=== PATIENT | female | born 1965 ===

== ENCOUNTER 2023-04-20 07:37 | Outpatient (CLI) | payer OTHER | END 2023-04-20 07:41 | disposition home or self-care (01) | LOC: LAB 07:37 | PROVIDERS: ATTEND Orthopaedic Surgery | DX: D64.9 Anemia, unspecified (principal); D68.8 Other specified coagulation defects; N39.0 Urinary tract infection, site not specified; E11.9 Type 2 diabetes mellitus without complications; B95.62 Methicillin resistant Staphylococcus aureus infection as the cause of diseases classified elsewhere; I10 Essential (primary) hypertension; Z76.89 Persons encountering health services in other specified circumstances ==

== ENCOUNTER 2023-05-01 05:40 | Day surgery (SDC) | payer OTHER ==
[~2023-05-01] VITALS: Ht 160 cm; Wt 78.9 kg
[~2023-05-01 05:40] MED LIST: CELEBREX200MG PO; COZAAR100 MG PO; DOXEPIN HCL150 MG PO; GABAPENTIN100 M2 PO; LAMICTAL150 M1 PO; LIPITOR20 MG PO; MAGNESIUM250 M1 PO; PEPCID AC10 MG PO; RISPERDAL4 MG PO; TOPROL XL25 M1 PO
== END 2023-05-01 17:00 | disposition home or self-care (01) ==
LOC: CIR.AMB 05:40
PROVIDERS: ATTEND Orthopaedic Surgery
DX: M24.561 Contracture, right knee (principal); M65.861 Other synovitis and tenosynovitis, right lower leg; M17.11 Unilateral primary osteoarthritis, right knee; Z20.822 Contact with and (suspected) exposure to COVID-19; E78.5 Hyperlipidemia, unspecified; I10 Essential (primary) hypertension

== ENCOUNTER 2024-02-19 07:18 | Outpatient (CLI) | payer OTHER | END 2024-02-19 07:21 | disposition home or self-care (01) | LOC: RAD 07:18 | PROVIDERS: ATTEND Orthopaedic Surgery | DX: M24.561 Contracture, right knee (principal); Z96.651 Presence of right artificial knee joint ==